=== PATIENT | male | born 1955 | race Caucasian/White ===

== ENCOUNTER 2018-07-31 03:29 | Emergency (ER) | payer OTHER ==
[2018-07-31] MEDS: NORepinephrine 8MG/250 ML (PMX 250 ML IV (04:07)
[2018-07-31 04:08] LABS: ABNORMAL IP MESSAGE 1; HEMATOCRIT 24.6 % (42.0-52.0); HEMOGLOBIN 7.3 g/dl (14.0-18.0); MEAN CORPUSCULAR HEMOGLOBIN 29.9 pg (29.0-33.0); MEAN CORPUSCULAR HGB CONC 29.7 g/dl (32.0-37.0); MEAN CORPUSCULAR VOLUME 100.8 fl (82.0-101.0); MEAN PLATELET VOLUME 11.2 fl (7.4-10.4); NUCLEATED RED BLOOD CELLS% 0.9 /100WBC (0.0-0.0); PLATELET COUNT 181 10^3/UL (140-415); POSITIVE DIFF @See below; RED BLOOD COUNT 2.44 10^6/ul (4.70-6.10); RED CELL DISTRIBUTION WIDTH 21.1 % (11.5-14.5)
[2018-07-31 04:08] LABS: WHITE BLOOD COUNT 19.7 10^3/ul (4.8-10.8)
[2018-07-31] MEDS: SODIUM CHLORIDE 0.9% 1L BAG IV* ×2 (04:08→04:13)
[2018-07-31 04:09] LABS: ADD MAN DIFF? YES
[2018-07-31] MEDS: CEFEPIME 2GM/50 ML (PMX) 50 ML IVPB (04:15)
[2018-07-31 04:18] LABS: ALANINE AMINOTRANSFERASE 7 IU/L (13-69); ALBUMIN 2.5 g/dl (3.3-4.9); ALBUMIN/GLOBULIN RATIO 0.71; ALKALINE PHOSPHATASE 142 IU/L (42-121); ANION GAP 11 (5-13); ASPARTATE AMINO TRANSFERASE 49 IU/L (15-46); BILIRUBIN,INDIRECT 0.3 mg/dl (0-1.1); BILIRUBIN,TOTAL 1.4 mg/dl (0.2-1.3); BLOOD UREA NITROGEN 41 mg/dl (7-20); CARBON DIOXIDE 23 mmol/L (21-31); CHLORIDE 103 mmol/L (97-110); CREATININE 7.22 mg/dl (0.61-1.24); Estimated GFR 8 mL/min (>60); GLUCOSE 261 mg/dl (70-220); POTASSIUM 3.4 mmol/L (3.5-5.1); SODIUM 137 mmol/L (135-144)
[2018-07-31 04:22] LABS: CALCIUM 13.7 mg/dl (8.4-10.2)
[2018-07-31 04:23] LABS: PARTIAL THROMBOPLASTIN TIME 29.7 Sec (23.0-35.0); PROTIME 16.3 Sec (11.9-14.9); PT RATIO 1.3
[2018-07-31 04:43] LABS: TROPONIN-I 0.129 ng/ml (0.000-0.120)
[2018-07-31] MEDS: VANCOMYCIN 1 GM (PMX) 250 ML IVPB (04:43)
[2018-07-31 05:10] LABS: ANISOCYTOSIS 1+ (0-0); BAND NEUTROPHILS #M 1.9 10^3/ul (0.0-0.6); BAND NEUTROPHILS % (M) 10 % (0-4); BASOPHIL #M 0.1 10^3/ul (0.0-0.0); BASOPHILS % (M) 1 % (0-2); EOSINOPHILS % (M) 8 % (0-7); GIANT THROMBO% (M) 1 % (0-0); LYMPHOCYTES #M 2.1 10^3/ul (0.8-2.9); LYMPHOCYTES % (M) 11 % (15-51); METAMYELOCYTES #M 0.1 10^3/ul (0.0-0.0); METAMYELOCYTES %M 1 % (0-0); MICROCYTOSIS 1+ (0-0); MONOCYTE #M 1.9 10^3/ul (0.3-0.9); MONOCYTES % (M) 10 % (0-11); MYELOCYTES #M 0.9 10^3/ul (0.0-0.0); MYELOCYTES % (M) 5 % (0-0); PLATELET ESTIMATE NORMAL; POIKILOCYTOSIS 2+ (0-0); POLYCHROMASIA 1+ (0-0); PROMYELOCYTES #M 0.1 10^3/ul (0-0); PROMYELOCYTES % (M) 1 % (0-0); REACTIVE LYMPHOCYTES #M 0.3 10^3/ul (0.0-0.0); REACTIVE LYMPHOCYTES% (M) 2 % (0-0); SEG NEUT #M 10.4 10^3/ul (1.6-7.5); SEGMENTED NEUTROPHILS (M) % 51 % (39-77); SMUDGE%M 13 % (0-0)
[2018-07-31] MEDS: VASOPRESSIN 60 UNIT in SOD CHLORIDE 0.9% 57 ML IV (06:12)
[2018-07-31] MEDS ORDERED: NA BICARBONATE 8.4% 50 ML SYG (07:00)
[2018-07-31] MEDS ORDERED: EPINEPHrine 0.1 MG/ML SYG (07:00)
[2018-07-31] MEDS ORDERED: CA CHLORIDE 10% 10 ML SYRINGE (07:00)
[2018-07-31] MEDS: ACETAMINOPHEN 325 MG TAB GTB (08:29)
[2018-07-31] MEDS ORDERED: ASPIRIN (EC) 81 MG TAB PO (09:00)
[2018-07-31] MEDS ORDERED: PYRIDOXINE 50 MG TAB PO (09:00)
[2018-07-31] MEDS ORDERED: VANCOMYCIN IV PER PHARMACY XX (09:00)
[2018-07-31] MEDS ORDERED: PANTOPRAZOLE 40 MG INJ IV (09:00)
[2018-07-31 09:10] LABS: AADO2 Arterial 585.1 mmHg (7.0-24.0); Allen Test ACCEPTAB; Arterial Base Excess -8.1 mmol/L (-3.0-3); Arterial COHb 0.3 % (0.0-3.0); Arterial Fraction of Oxyhgb 85.9 % (93.0-99.0); Arterial HCO3 20.8 mmol/L (22.0-26.0); Arterial pCO2 62.2 mmhg (35-45); MODE VENT - AC; Site Right Radial
[2018-07-31 09:38] LABS: LACTIC ACID 4.3 mmol/L (0.5-2.0)
[2018-07-31] MEDS ORDERED: ALBUMIN HUMAN 25% 100 ML IV (12:00)
[2018-07-31] MEDS ORDERED: ROSUVASTATIN CALCIUM 40 MG TABLET PO (21:00)
== END 2018-07-31 15:38 | disposition expired ==
LOC: E/R 03:29
DX: I95.9 Hypotension, unspecified (principal); R65.21 Severe sepsis with septic shock; A41.9 Sepsis, unspecified organism; I21.4 Non-ST elevation (NSTEMI) myocardial infarction; N19 Unspecified kidney failure; Z79.82 Long term (current) use of aspirin; Z79.84 Long term (current) use of oral hypoglycemic drugs
CPT/HCPCS: 36415; 36600; 71045; 71250; 74176; 80053; 82803; 82962; 83605; 84484; 85025; 85610; 85730; 87040; 87070; 87400; 92950; 93005; 94002; 96374; 96375; 99291-25